=== PATIENT | female | born 1975 | race African-American/Black ===

== ENCOUNTER 2024-11-23 09:22 | Emergency (ER) | payer OTHER ==
[~2024-11-23] VITALS: Ht 165.1 cm; Wt 82.6 kg
[~2024-11-23 09:22] MED LIST: CIPRO HC OTIC S10 ML RIGHT EAR; CIPROFLOX-DEXA7.5 ML RIGHT EAR
[2024-11-23] MEDS ORDERED: IOPAMIDOL 370 MG/ML 100 ML INFUS..BTL INJ ONE (10:02)
[2024-11-23 11:40] VITALS: PULSE 88; RESP 16; TEMP 97.6; O2SAT 98
== END 2024-11-23 11:41 | disposition home or self-care (01) ==
LOC: FSED 09:56
DX: R10.30 Lower abdominal pain, unspecified (principal); K59.00 Constipation, unspecified; I10 Essential (primary) hypertension; E11.9 Type 2 diabetes mellitus without complications; Z98.84 Bariatric surgery status
CPT/HCPCS: 74177; 80053; 85025; 99283; Q9967